=== PATIENT | male | born 1995 | race Caucasian/White ===

== ENCOUNTER 2024-08-11 10:09 | Outpatient (OUT) | payer OTHER, SELFPAY ==
--- NOTE | 2024-08-11 | XR_ITS ---
[address] [address] Patient Name: PREMA SUÁREZ MRN: [id number] date: 1995 Sex: M Assigned Patient Location: Current Patient Location: Accession/Order Number: [id number] Exam Date: 08/11/2024 10:22 Report Date: 08/13/2024 07:39 At the request of: RACQUEL FLOOD Procedure: XR shoulder RT min 2V PROCEDURE: XR shoulder RT min 2V COMPARISON: None. HISTORY: RIGHT SHOULDER PAIN FINDINGS: BONES:No fracture, acute abnormality, or significant arthropathy. SOFT TISSUES:Negative. No visible soft tissue swelling. EFFUSION:None visible. OTHER: Negative. XR/XR shoulder RT min 2V IMPRESSION: No acute radiographic abnormality Electronically authenticated by: JARAD MCKEON Date: 08/13/2024 07:39
== END 2024-08-11 10:10 | disposition home or self-care (01) ==
LOC: EC 10:10
PROVIDERS: Visit Provider Orthopaedic Surgery
DX: M25.511 Pain in right shoulder (principal)
CPT/HCPCS: 73030

== ENCOUNTER 2024-12-29 11:03 | Outpatient (OUT) | payer OTHER, SELFPAY ==
--- NOTE | 2024-12-29 11:17 | XR_ITS ---
The [address] [address] Patient Name: PREMA SUÁREZ MRN: [id number] date: 1995 Sex: M Assigned Patient Location: Current Patient Location: Accession/Order Number: [id number] Exam Date: 12/29/2024 11:47 Report Date: 12/29/2024 11:48 At the request of: RACQUEL FLOOD MD Procedure: XR wrist LT min 3V LEFT WRIST - 3 views COMPARISON: None CLINICAL DATA: Left wrist pain since injury at work one month ago. AP, lateral and oblique views were obtained. No acute or healing fractures are identified. No dislocation is seen. There is no soft tissue swelling. XR/XR wrist LT min 3V IMPRESSION: NO ACUTE BONY INJURY. Impression dictated by: Pooja Jaimes M.D.12/29/2024 11:48 AM Dictation Location: [place] [address] Electronically authenticated by: [id number] Y Date: 12/29/2024 11:48
== END 2024-12-29 11:04 | disposition home or self-care (01) ==
PROVIDERS: Visit Provider Orthopaedic Surgery
DX: M25.532 Pain in left wrist (principal)
CPT/HCPCS: 73110